=== PATIENT | female | born 1950 ===

== ENCOUNTER → 2019-03-27 | Outpatient (CLI) | payer MEDICARE, OTHER ==
[~2019-03-27] MED LIST: REGADENOSON 0.4 MG/5 ML DISP.SYRIN. IV ONE
--- NOTE | 2019-03-27 16:28 | PCVCIMAG ---
APPROVED REPORT Imaging Protocol: Rest Tc-99m/Stress Tc-99m 1 day Study performed: 03/27/2019 13:16:49 Indication: CAD , Pre-Operative CV evaluation, CKD Patient Location: Out-Patient Stress Nurse: Jennifer Agustin RN, Siobhan Pride RN [place] Tech:Celena RICHELLE LewisMT Ht: 5 ft 4 in Wt: 172 lbs BSA: 1.83 m2 HR: 67 bpm BP: 163/81 mmHg BMI: 29.5 Rhythm: Sinus Rhythm Medical History Medical History: HTN Medications: Eliquis, Losartan Allergies: ASA Cardiac Risk Factors: Age Pretest Chest Pain Characteristics: No chest pain Exercise History: Sedentary Resting Data Rest SPECT myocardial perfusion imaging was performed in supine position 45 minutes following the intravenous injection of 10.3 mCi of Tc-99m Sestamibi. Time of rest injection: 1315 Date: 03/27/2019 Administration Route: IV Administration Site: Right AC Pharmacologic Stress Pharmacologic stress test was performed by injecting Regadenoson 0.4 mg IV push over 10-15 seconds immediately followed by the intravenous injection of 31.6 mCi of Tc-99m Sestamibi. Time of stress injection: 1430 Date: 03/27/2019 Administration Route: IV Administration Site: Right AC Gated Stress SPECT was performed 45 minutes after stress injection. The images were gated to evaluate regional wall motion and calculate left ventricular ejection fraction. Stress Test Details Stress Test: Pharmacologic stress testing performed using 0.4 mg of regadenoson per 5 mL given IV over 10 seconds. Reason for pharmacologic stress test: physical limitation, awaiting knee surgery. HRMax Heart Rate (APMHR): 149 bpm Resting HR: 67 bpmTarget HR (85% APMHR): 126 bpm Max HR Achieved: 98 bpm % of APMHR: 65 Recovery HR: 88 bpm BP Resting BP: 163/81 mmHg Max BP: 140/73 mmHg Recovery BP: 145/77 mmHg ECG Resting ECG: Sinus Rhythm Stress ECG: Sinus Rhythm, Arrhythmia: PVC's Recovery ECG: Sinus Rhythm Clinical Reason for Termination: Completed protocol Stress Symptoms: Headache, Lightheaded Exercise duration: 0 min 55 sec Symptoms resolved with caffeine. Study Data Post stress, the left ventricular ejection was 89%.. SSS: 0 SRS: 0 SDS: 0 TID = 1.00. Perfusion There is a small area of mildly reduced uptake in the apical segment of the anterior wall which is seen on the stress images as well as the resting images. This area thickens and moves normally and is most consistent with attenuation artifact. Wall Motion Normal left ventricular wall motion. Nuclear Conclusion ECG Findings: non-diagnostic Clinical Findings: negative for ischemia Nuclear Findings: negative for ischemia Exercise Capacity: not assessed Left Ventricular Function: normal 1. Low risk study 2. Post stress left ventricular ejection fraction of 89% without wall motion abnormalities Interpreted by: Shalini Ray MD Electronically Approved: 03/27/2019 16:27:31
== END | disposition home or self-care (01) ==
LOC: PCVCIMAG 12:59
PROVIDERS: ATTEND Internal Medicine Cardiovascular Disease
DX: Z01.810 Encounter for preprocedural cardiovascular examination (principal); I25.10 Atherosclerotic heart disease of native coronary artery without angina pectoris; R07.9 Chest pain, unspecified; R55 Syncope and collapse; I12.9 Hypertensive chronic kidney disease with stage 1 through stage 4 chronic kidney disease, or unspecified chronic kidney disease; N18.9 Chronic kidney disease, unspecified
CPT/HCPCS: 78452; 93017; A9500; J2785